=== PATIENT | female | born 1975 | race Caucasian/White ===

== ENCOUNTER 2017-06-08 06:06 | Day surgery (SDC) | payer OTHER ==
[~2017-06-08 06:06] MED LIST: Lactated Ringers 1,000 ML IV SCH
[2017-06-08] MEDS ORDERED: VERSED 5 MG/5 ML IV ONE (06:07)
[2017-06-08] MEDS ORDERED: DIPRIVAN 200 MG/20 ML IV ONE (06:07)
[2017-06-08] MEDS ORDERED: Lactated Ringers 1,000 ML IV ONE (08:26)
[2017-06-08 09:03] VITALS: O2SAT 100
[2017-06-08 09:27] VITALS: BP 144/75; PULSE 78
--- NOTE | 2017-06-08 09:51 | OP ---
SURGERY DATE: 06/08/17 SURGERY TIME: 754 PREOPERATIVE DIAGNOSIS: 1. RECTAL BLEEDING. POSTOPERATIVE DIAGNOSIS: 1. SIGMOID COLON POLYP. PROCEDURE: 1. Colonoscopy with polypectomy. SURGEON: Dr. Lou. ANESTHESIA: MAC. Medications given by the Anesthesia Department. BRIEF HISTORY: The patient is a 42 y/o WF presenting now with intermittent mucusy, bloody stools. The patient was felt to need to have endoscopic evaluation. She was appraised of the risks of the procedure including the risk of perforation, phlebitis, untoward reaction to medication, bleeding, and missed lesions. The patient verbalized her understanding and desired to have the procedure performed. DESCRIPTION OF PROCEDURE: The patient was given the medications by the Anesthesia Department. She had continuous pulse oximetry, ECG monitoring, intermittent BP monitoring, and end tidal CO2 monitoring during the examination. She was placed in the left lateral decubitus position. A digital rectal examination was performed and revealed normal anal sphincter tone and no masses. The flexible Olympus pediatric colonoscope was used to intubate the rectum. A view of the colon was developed sequentially to the cecum including a short distance in the terminal ileum. Upon insertion and withdrawal, including a retroflex view in the rectum was noted a small sigmoid colon polyp which was biopsied with cold biopsy destroying the polyp with just 2 passes of the polyp forceps. A second larger polyp was approximately 1.5 cm in size which was removed using polypectomy snare and hot biopsy technique. The polyp was retrieved for pathologic evaluation. No other mucosal lesions being encountered, the scope was removed from the patient who tolerated the procedure well and was sent back to OP recovery in good condition. The prep was noted to be fair to good.
== END 2017-06-08 09:25 | disposition home or self-care (01) ==
LOC: SDC 06:06
PROVIDERS: ATTEND Family Medicine
PROC: 0DBN8ZX Excision of Sigmoid Colon, Via Natural or Artificial Opening Endoscopic, Diagnostic (ICD-10-PCS; principal; 2017-06-08)
PROC: 0DBN8ZX Excision of Sigmoid Colon, Via Natural or Artificial Opening Endoscopic, Diagnostic (ICD-10-PCS; 2017-06-08)
PROC: 0DBN8ZX Excision of Sigmoid Colon, Via Natural or Artificial Opening Endoscopic, Diagnostic (ICD-10-PCS; 2017-06-08)
DX: K63.5 Polyp of colon (principal); K62.5 Hemorrhage of anus and rectum
CPT/HCPCS: 00810; 84703; J2250; J2704

== ENCOUNTER 2018-03-14 12:21 | Emergency (ER) | payer OTHER ==
[2018-03-14] MEDS ORDERED: TORAdol 30 mg Injection IM ONE (12:56)
--- NOTE | 2018-03-14 12:56 | ERPHSYRPT ---
- History of Present Illness Time Seen by Provider: 03/14/18 12:56 Source: patient, family Exam Limitations: no limitations Patient Subjective Stated Complaint: pt reports falling down her stairs earlier today while carrying her dog. pt states she lost footing at the top of the stairs and slipped landing primarily on her back and her eblows. pt reports she had a mole removed one month ago and had ninoska to the lower back which became infected. pt reports that the wound on her back is from the mole removal at that time. pt reports pain to the bilat elbows and lower back. pt denies LOC, pt denies any other injury at this time. Triage Nursing Assessment: pt is aox3, pupils perrl, pt afebrile, resps easy and non labored, radial pulses strong and equal, skin pink warm dry, abrasions noted to the bilat elbows, there is a open wound measuring approx 2 cm to the lumbar region of the back which draining a small amount of blood. dressing in place at this time. Physician History: The patient is a 43-year-old female with her mother complaining that she fell on the steps prior to arrival. She is a right-handed female and hit her right elbow and her low back. She is not too concerned about the right elbow over the spine. She is concerned that she has bleeding to open wound of her lumbar back. One month ago she had a bowl removed from the skin over her lumbar spine. It was closed with ninoska. The ninoska were removed but an infection ensued. She is currently on clindamycin orally and mupirocin topically for the infection at the site of the mole excision. The surgical site had slightly dehisced a few days ago. It is currently bleeding and has opened up significantly after the fall. Her past medical history is significant for mole resection on her lower back, hypothyroidism. Occurred: this morning Reason for Fall: slipped, fell from standing pos Injuries/Pain Location: upper extremity (right elbow), back Loss of Consciousness: no loss of consciousness Quality: aching Severity of Pain-Max: mild Severity of Pain-Current: mild Modifying Factors: Improves With: nothing Associated Symptoms (Fall): back pain, other (laceration) Allergies/Adverse Reactions: No Known Drug Allergies Allergy (Verified 03/14/18 12:42) Home Medications: Levothyroxine Sodium 100 Mcg [Synthroid 100 Mcg] 100 mcg PO DAILY 06/06/17 [History] Norgestimate-Ethinyl Estradiol [Sprintec] 28 each PO DAILY 06/06/17 [History] Hx Tetanus, Diphtheria Vaccination/Date Given: Yes Hx Influenza Vaccination/Date Given: No Hx Pneumococcal Vaccination/Date Given: No Immunizations Up to Date: Yes - Review of Systems Constitutional: No Fever, No Chills Eyes: No Symptoms Ears, Nose, & Throat: No Symptoms Respiratory: No Cough, No Dyspnea Cardiac: No Chest Pain, No Edema, No Syncope Abdominal/Gastrointestinal: No Abdominal Pain, No Nausea, No Vomiting, No Diarrhea Genitourinary Symptoms: No Dysuria Musculoskeletal: Back Pain, Fall, Injury, No Neck Pain Skin: Other (laceration) Neurological: No Dizziness, No Focal Weakness, No Sensory Changes Psychological: No Symptoms Endocrine: No Symptoms Hematologic/Lymphatic: No Symptoms Immunological/Allergic: No Symptoms All Other Systems: Reviewed and Negative - Past Medical History Pertinent Past Medical History: Yes Neurological History: No Pertinent History ENT History: No Pertinent History Cardiac History: No Pertinent History Respiratory History: Asthma Endocrine Medical History: Other Musculoskeletal History: Other GI Medical History: No Pertinent History History: No Pertinent History Psycho-Social History: No Pertinent History Female Reproductive Disorders: Fibroids Other Medical History: thyroid removed due to mass 2003 - Past Surgical History Past Surgical History: Yes Neuro Surgical History: No Pertinent History Cardiac: No Pertinent History Respiratory: No Pertinent History Gastrointestinal: No Pertinent History Genitourinary: No Pertinent History Musculoskeletal: No Pertinent History Female Surgical History: No Pertinent History Other Surgical History: 1/2 thyroid removed 2003 - Social History Smoking Status: Never smoker Exposure to second hand smoke: No Drug Use: none Patient Lives Alone: No - Female History Hx Last Menstrual Period: 02/14/18 Hx Now: No - Nursing Vital Signs Nursing Vital Signs: Initial Vital Signs Temperature 98.1 F 03/14/18 12:27 Pulse Rate 75 03/14/18 12:27 Respiratory Rate 18 03/14/18 12:27 Blood Pressure 135/85 03/14/18 12:27 O2 Sat by Pulse Oximetry 99 03/14/18 12:27 Pain Scale Pain Intensity 6 - Paresh Coma Score Best Eye Response ([place]): (4) open spontaneously Best Verbal Response (Paresh): (5) oriented Best Motor Response ([place]): (6) obeys commands Paresh Total: 15 - Physical Exam General Appearance: no apparent distress, alert Head Injury: no evidence of injury Eye Exam: PERRL/EOMI ENT Exam: airway nml Neck Exam: normal inspection, No tenderness Respiratory/Chest Exam: normal breath sounds, No chest tenderness, No respiratory distress Cardiovascular Exam: normal heart sounds, regular rate/rhythm Gastrointestinal Exam: soft, No tenderness, No distention, No guarding, No ecchymosis Rectal Exam: not done Back Exam: vertebral tenderness Extremity Exam: normal inspection, normal range of motion, pelvis stable, No deformities Neurologic Exam: alert, oriented x 3, cooperative, sensation nml, No motor deficits Skin Exam: laceration (Examination of the right elbow: There is a small abrasion to the right elbow. Examination of the lumbar back: There has been dehiscence of the healing wound to the mid low back. The area of dehiscence is 1 1/2 cm. There is mild bleeding.) SpO2 Interpretation: normal SpO2: 99 Oxygen Delivery: Room Air - Radiology Exams Right Elbow X-ray Interpretation: Reviewed by me, Teleradiologist Report (per Dr Mathur), No Fracture, No Subluxation L-Spine X-ray Interpretation: Reviewed by me, Teleradiologist Report (per Dr Mathur), No Fracture, No Subluxation Ordered Tests: Active Orders 24 hr Category Date Time Status Cold Application STAT Care 03/14/18 12:56 Active ELBOW (MINIMUM 3 VIEWS) Stat Exams 03/14/18 12:56 Completed LUMBAR LIMITED (2 OR 3 VIEWS) Stat Exams 03/14/18 12:57 Completed Medication Summary Discontinued Medications Generic Name Dose Route Start Last Admin Trade Name Freq PRN Reason Stop Dose Admin Diphtheria/Tetanus/Acell Pertussis 0.5 ml 03/14/18 13:06 Adacel Vial IM 03/14/18 13:07 .ONCE ONE Diphtheria/Tetanus/Acell Pertussis Confirm 03/14/18 13:36 Adacel Vial Administered 03/14/18 13:37 Dose 0.5 ml IM .STK-MED ONE Ketorolac Tromethamine 60 mg 03/14/18 12:56 03/14/18 13:01 Toradol 30 Mg Injection IM 03/14/18 12:57 60 mg STAT ONE Administration Ketorolac Tromethamine Confirm 03/14/18 13:00 Toradol 30 Mg Injection Administered 03/14/18 13:01 Dose 60 mg .ROUTE .STK-MED ONE - Progress Progress: improved Counseled pt/family regarding: diagnosis, need for follow-up, rad results - Departure Time of Disposition: 13:44 Departure Disposition: Home Clinical Impression: Wound dehiscence, Fall Condition: Stable Critical Care Time: No Referrals: COREY TIPTON [Primary Care Provider] - Additional Instructions: You fell down some stairs causing a dehiscence of the wound over your lower back. Since this was a wound with an infection and partial dehiscence before the fall, now that you have a complete dehiscence at the site of the scar tissue , we need to let the wound heal on its own. Continue taking clindamycin as directed. Keep the wound covered. You were given a Toradol 60 mg IM injection in the ER. They were also given a tetanus vaccination in the ER. Follow-up with your primary medical doctor tomorrow. The x-rays of your right elbow and your low back were negative. You may take Tylenol and ibuprofen as needed.
[2018-03-14] MEDS ORDERED: TORAdol 30 mg Injection ONE (13:00)
[2018-03-14] MEDS ORDERED: Adacel Vial IM ONE ×2 (13:06→13:36)
--- NOTE | 2018-03-14 13:33 | XRAY ---
Indication: Pain following fall. Comparison: None 3 views of the right elbow demonstrates normal bones, articulation, and soft tissues.
--- NOTE | 2018-03-14 13:35 | XRAY ---
Indication: Pain following fall. Comparison: None 3 views of the lumbar spine demonstrates 5 lumbar segments in normal alignment with vertebral body heights and disc spaces maintained. Minimal multilevel endplate spurring and mild bilateral L5-S1 degenerative facet arthropathy. No acute fracture, subluxation, or suspicious bony lesions. Incidental mild diffuse scattered colonic fecal debris. Impression: Nonacute lumbar spine with chronic features. Mild fecal stasis.
[2018-03-14 13:58] VITALS: BP 104/66; PULSE 66; O2SAT 98
== END 2018-03-14 14:05 | disposition home or self-care (01) ==
LOC: ED 12:21
DX: T81.30XA Disruption of wound, unspecified, initial encounter (principal); S50.311A Abrasion of right elbow, initial encounter; M25.521 Pain in right elbow; M54.9 Dorsalgia, unspecified; W10.9XXA Fall (on) (from) unspecified stairs and steps, initial encounter; Y92.009 Unspecified place in unspecified non-institutional (private) residence as the place of occurrence of the external cause
CPT/HCPCS: 72100; 73080; 90471; 90715; 96372; 99284; J1885

== ENCOUNTER 2018-04-02 06:17 | Day surgery (SDC) | payer OTHER ==
[2018-04-02] MEDS ORDERED: Ketamine HCl 50 MG/ML IJ ONE (06:18)
[2018-04-02] MEDS ORDERED: DIPRIVAN 200 MG/20 ML IV ONE (06:18)
[2018-04-02] MEDS ORDERED: Lactated Ringers 1,000 ML IV SCH (06:30)
[2018-04-02] MEDS ORDERED: Lactated Ringers 1,000 ML IV ONE (06:30)
[2018-04-02 06:45] VITALS: O2SAT 100
[2018-04-02 09:24] VITALS: BP 117/64; PULSE 75
--- NOTE | 2018-04-02 11:17 | OP ---
SURGERY DATE/TIME: 04/02/2018 0750 PREOPERATIVE DIAGNOSIS: History of colon polyps and recent rectal bleeding. POSTOPERATIVE DIAGNOSIS: Normal colon but tortuous. PROCEDURE: Colonoscopy. SURGEON: Dr. Lou. ANESTHESIA: MAC. Medications given by anesthesia department. HISTORY: The patient is a 43 year-old white female who has a history of colon polyps. She recently had some rectal bleeding episodes. She was felt the need to have endoscopic evaluation. She was appraised of the risks of the procedure including the risk of perforation, phlebitis, untoward reaction to medication, bleeding and missed lesions. The patient verbalized her understanding and desired to have the procedure performed. DESCRIPTION OF PROCEDURE: The patient was given the medications by the anesthesia department. She had continuous pulse oximetry, ECG monitoring, intermittent blood pressure monitoring and tidal CO2 monitoring during the examination. She was placed in the left lateral decubitus position. A digital rectal examination was performed and revealed normal anal sphincter tone and no masses, no hemorrhoids and no fissure, no masses. The flexible Olympus pediatric colonoscope was used to intubate the rectum. A view of the colon was developed sequentially to the cecum including a short distance into the terminal ileum. Upon insertion and withdrawal was noted the colon to be quite tortuous. There was also noted to be semi-solid stool still left in the colon but did not preclude our evaluation of the colon. We found no polyps. No evidence of colitis otherwise. The scope was removed from the patient who tolerated the procedure well and was sent back to OP recovery in good condition. Again, the prep was noted to be fair.
== END 2018-04-02 09:25 | disposition home or self-care (01) ==
LOC: SDC 06:17
PROVIDERS: ATTEND Family Medicine
DX: K62.5 Hemorrhage of anus and rectum (principal); Z86.010 Personal history of colon polyps; Q43.8 Other specified congenital malformations of intestine
CPT/HCPCS: 84703; 94250; J2704

== ENCOUNTER 2018-05-17 23:49 | Emergency (ER) | payer OTHER ==
--- NOTE | 2018-05-18 00:18 | ERPHSYRPT ---
- History of Present Illness Time Seen by Provider: 05/18/18 00:05 Source: patient, family Exam Limitations: no limitations Patient Subjective Stated Complaint: pt is alert and oriented. pt is ambulatory with a steady gait. pt c/o left lower leg pain. pt states it's a "weird pain". pt had hysterectomy monday and was concerned the pain may be related to a blood clot. pt pedal pulses present. cap refill <3 seconds. negative homans sign. Triage Nursing Assessment: see above Physician History: 43 y/o white female presents with a veritically oriented strip of left calve pain since yesterday afternoon. pt underwent a hysterectomy 6 days ago. she is concerned about a blood clot. pt denies soa. denies cp. denies cough or hemoptysis. father with h/o dvt Method of Injury: other (no injury) Occurred: yesterday Quality: stabbing Severity of Pain-Max: mild Severity of Pain-Current: mild Lower Extremities Pain: leg: left Modifying Factors: Improves With: movement Associated Symptoms: No unable to bear weight, No dizzy, No fainted, No seizure , No snapping sensation, No popping sensation Allergies/Adverse Reactions: No Known Drug Allergies Allergy (Verified 04/02/18 06:51) Home Medications: Levothyroxine Sodium 100 Mcg [Synthroid 100 Mcg] 100 mcg PO DAILY 06/06/17 [History] Hx Tetanus, Diphtheria Vaccination/Date Given: Yes (2017) Hx Influenza Vaccination/Date Given: No Hx Pneumococcal Vaccination/Date Given: No Immunizations Up to Date: Yes - Review of Systems Constitutional: No Symptoms Eyes: No Symptoms Ears, Nose, & Throat: No Symptoms Respiratory: No Symptoms, No Cough, No Dyspnea Cardiac: No Symptoms Abdominal/Gastrointestinal: No Symptoms Genitourinary Symptoms: No Symptoms Musculoskeletal: No Symptoms Skin: No Symptoms Neurological: No Symptoms Psychological: No Symptoms Endocrine: No Symptoms Hematologic/Lymphatic: No Symptoms Immunological/Allergic: No Symptoms All Other Systems: Reviewed and Negative - Past Medical History Pertinent Past Medical History: Yes Neurological History: No Pertinent History ENT History: No Pertinent History Cardiac History: No Pertinent History Respiratory History: Asthma Endocrine Medical History: Other Musculoskeletal History: Other GI Medical History: No Pertinent History History: No Pertinent History Psycho-Social History: No Pertinent History Female Reproductive Disorders: Fibroids Other Medical History: thyroid removed due to mass 2003. 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 Muscle tightness since rheumatic fever. - Past Surgical History Past Surgical History: Yes Neuro Surgical History: No Pertinent History Cardiac: No Pertinent History Respiratory: No Pertinent History Gastrointestinal: No Pertinent History Genitourinary: No Pertinent History Musculoskeletal: No Pertinent History Female Surgical History: Hysterectomy Other Surgical History: 13 thyroid removed 2003, mole removed from back. - Social History Smoking Status: Never smoker Exposure to second hand smoke: Yes Drug Use: none Patient Lives Alone: No - Female History Hx Now: No - Nursing Vital Signs Nursing Vital Signs: Initial Vital Signs Temperature 98.2 F 05/17/18 23:50 Pulse Rate 94 H 05/17/18 23:50 Blood Pressure 140/92 05/17/18 23:50 O2 Sat by Pulse Oximetry 99 05/17/18 23:50 Pain Scale Pain Intensity 1 - Physical Exam General Appearance: no apparent distress, alert, anxiety Eyes, Ears, Nose, Throat Exam: normal ENT inspection, moist mucous membranes Neck Exam: normal inspection, non-tender, supple, full range of motion Cardiovascular/Respiratory Exam: chest non-tender, normal breath sounds, regular rate/rhythm Gastrointestinal/Abdominal Exam: non-tender, soft, No guarding, No tenderness Back Exam: normal inspection, normal range of motion, No CVA tenderness, No vertebral tenderness Hips Exam: bilateral: non-tender, normal inspection, normal range of motion, no evidence of injury Legs Exam: left leg: non-tender (left calve), bilateral leg: normal inspection, normal range of motion, no evidence of injury Knees Exam: bilateral knee: non-tender, normal inspection, normal range of motion, no evidence of injury Ankle Exam: bilateral ankle: non-tender, normal inspection, normal range of motion, no evidence of injury Foot Exam: bilateral foot: non-tender, normal inspection, normal range of motion , no evidence of injury Neuro/Tendon Exam: normal sensation, normal motor functions, normal tendon functions Mental Status Exam: alert, oriented x 3, cooperative Skin Exam: normal color, warm, dry SpO2 Interpretation: normal SpO2: 99 Oxygen Delivery: Room Air - Course Nursing assessment & vital signs reviewed: Yes Ordered Tests: Active Orders 24 hr Category Date Time Status D-DIMER QUANTITATION Stat Lab 05/18/18 00:18 Ordered Medication Summary Discontinued Medications Generic Name Dose Route Start Last Admin Trade Name Freq PRN Reason Stop Dose Admin Enoxaparin Sodium 60 mg 05/18/18 01:06 Enoxaparin Sodium SQ 05/18/18 01:07 STAT ONE Lab/Rad Data: Laboratory Results 05/18/18 Range/Units 00:35 D-Dimer 820 H* (215-500) ng/mL - Progress Progress: unchanged Counseled pt/family regarding: lab results, diagnosis, need for follow-up - Departure Time of Disposition: 01:15 Departure Disposition: Home Clinical Impression: Lower extremity pain, left, Elevated d-dimer Condition: Stable Critical Care Time: No Referrals: COREY TIPTON [Primary Care Provider] - Additional Instructions: return this morning to hospital radiology department for venous doppler of left lower extremity. go to ED after testing for test results.
[2018-05-18 01:05] VITALS: BP 115/74; PULSE 90
[2018-05-18] MEDS ORDERED: ENOXAPARIN SODIUM SQ ONE ×2 (01:06→01:12)
[2018-05-18 01:23] VITALS: O2SAT 99
== END 2018-05-18 01:47 | disposition home or self-care (01) ==
LOC: ED 23:49
DX: M79.662 Pain in left lower leg (principal); R79.1 Abnormal coagulation profile; Z98.890 Other specified postprocedural states
CPT/HCPCS: 36415; 85379; 96372; 99283; J1650